=== PATIENT | female | born 1940 | race African-American/Black ===

== ENCOUNTER 2016-09-05 11:48 | Observation (INO) | payer MEDICARE ==
[~2016-09-05] VITALS: Ht 160 cm; Wt 49.9 kg
[~2016-09-05 11:48] MED LIST: ALBU6.7H INH; AMIODARONE PO; ATORVASTATIN PO; AZIT250T6 PO; CLOPIDOGREL PO; HYDR-4134 PO; LOSARTAN PO; MAGN400C PO
[2016-09-05 13:21] LABS: BASOPHILS % 1.3 % (0.0-2.0); EOSINOPHILS % 14.5 % (0.0-5.0); HEMATOCRIT. 32.5 % (36.0-48.0); LYMPHOCYTES % 14.4 % (20.0-50.0); MEAN CORPUSCULAR HEMOGLOBIN 30.2 pg (28.0-32.0); MEAN PLATELET VOLUME 8.8 fl (7.4-10.4); MONOCYTES % 10.4 % (2.0-8.0); NEUTROPHILS % 59.4 % (40.0-76.0); PLATELET 145 x1000/uL (130-400); RED BLOOD CELL COUNT 3.66 mill/uL (4.2-5.4); RED CELL DISTRIBUTION WIDTH 15.7 % (11.6-14.6)
[2016-09-05 13:28] LABS: INR 1.2; PROTHROMBIN TIME 12.7 sec
[2016-09-05 13:30] LABS: CLARITY URINE CLOUDY (CLEAR); COLOR URINE DARK YELLOW (YELLOW); GLUCOSE URINE NEGATIVE (NEGATIVE); KETONES URINE NEGATIVE (NEGATIVE); LEUKOCYTE ESTERASE URINE TRACE (NEGATIVE); NITRITE URINE NEGATIVE (NEGATIVE); OCCULT BLOOD URINE NEGATIVE (NEGATIVE); PROTEIN URINE 1+ (NEGATIVE); SPECIFIC GRAVITY URINE 1.016 (1.005-1.030)
[2016-09-05 13:32] LABS: CARBON DIOXIDE 30 mEq/L (21-32); CHLORIDE 103 mEq/L (98-107); ETHANOL BLOOD < 10 mg/dL
[2016-09-05 13:33] LABS: TROPONIN I 0.07 ng/mL (0.00-0.04)
[2016-09-05 13:59] LABS: *AMPHETAMINES SCREEN URINE NEGATIVE (NEGATIVE); *BARBITURATES SCREEN URINE NEGATIVE (NEGATIVE); *BENZODIAZEPINES SCREEN URINE PRESUMTIVE POSITIVE (NEGATIVE); *COCAINE SCREEN URINE NEGATIVE (NEGATIVE); CANNABINOID URINE SCREEN NEGATIVE (NEGATIVE); METHADONE URINE SCREEN NEGATIVE (NEGATIVE); OPIATES URINE SCREEN NEGATIVE (NEGATIVE); PHENCYCLIDINE URINE SCREEN NEGATIVE (NEGATIVE)
[2016-09-05] MEDS ORDERED: ASPIRIN 325MG TABLET PO ONE (15:00)
[2016-09-05 22:30] VITALS: BP 190/92
[2016-09-05 22:35] VITALS: BP 190/92
[2016-09-05] MEDS ORDERED: HYDRALAZINE HCL 50MG TABLET PO SCH (23:15)
[2016-09-05] MEDS ORDERED: LOSARTAN POTASSIUM 50 MG TABLET PO SCH (23:45)
[2016-09-05] MEDS ORDERED: ASPIRIN 325MG TABLET PO SCH (23:45)
[2016-09-05] MEDS ORDERED: PANTOPRAZOLE 40MG DR TABLET PO SCH (23:45)
[2016-09-05] MEDS ORDERED: FUROSEMIDE 40MG/4ML VIAL IVP SCH (23:45)
[2016-09-05] MEDS ORDERED: MORPHINE SULFATE 2 MG/ML CPJ (NOT FOR IM USE) IV PRN (23:45)
[2016-09-06] VITALS (11 sets, daily range): BP systolic 136–180; BP diastolic 68–99
[2016-09-06] MEDS ORDERED: AMIODARONE HCL 200 MG TABLET PO SCH (00:15)
[2016-09-06] MEDS ORDERED: FUROSEMIDE 40MG/4ML VIAL IVP NR (00:26)
[2016-09-06] MEDS ORDERED: LOSARTAN POTASSIUM 50 MG TABLET PO NR (00:26)
[2016-09-06] MEDS ORDERED: HYDRALAZINE HCL 50MG TABLET PO NR (00:26)
[2016-09-06] MEDS: CLOPIDOGREL 75MG TABLET PO SCH ×2 (00:41→09:58)
[2016-09-06] MEDS: MAGNESIUM OXIDE 400MG TABLET PO SCH ×2 (00:42→09:59)
[2016-09-06 05:57] LABS: CARBON DIOXIDE 28 mEq/L (21-32); CHLORIDE 103 mEq/L (98-107); HDL CHOLESTEROL 57 mg/dL (40-59); LDL CHOLESTEROL 122 mg/dL (5-100); TROPONIN I 0.06 ng/mL (0.00-0.04)
[2016-09-06] MEDS ORDERED: FUROSEMIDE 40MG/4ML VIAL IVP SCH (09:00)
[2016-09-06] MEDS ORDERED: PANTOPRAZOLE 40MG DR TABLET PO SCH (09:00)
[2016-09-06] MEDS ORDERED: POTASSIUM CHLORIDE 10MEQ TABLET SR PO SCH ×2 (09:00)
[2016-09-06] MEDS ORDERED: ASPIRIN 325MG TABLET PO SCH (09:00)
[2016-09-06] MEDS ORDERED: LOSARTAN POTASSIUM 50 MG TABLET PO SCH (09:00)
[2016-09-06] MEDS ORDERED: HYDRALAZINE HCL 50MG TABLET PO SCH (09:00)
[2016-09-06] MEDS ORDERED: ENOXAPARIN 30MG/0.3ML SYR SUBCUT SCH (09:00)
[2016-09-06] MEDS ORDERED: POTASSIUM CHLORIDE 20MEQ TABLET SR PO NR (10:45)
[2016-09-06] MEDS ORDERED: ATORVASTATIN CALCIUM 20MG TABLET PO SCH (21:00)
== END 2016-09-06 20:00 | disposition short-term general hospital (02) ==
LOC: ER 11:58 → EDBEDREQ 13:11 → INTOOBSV 15:42 → 6WST 15:42 → EDBEDREQ 15:43 → ENRESERV 19:29
PROVIDERS: ADMIT Internal Medicine; ATTEND Internal Medicine
DX: I50.22 Chronic systolic (congestive) heart failure (principal); I25.10 Atherosclerotic heart disease of native coronary artery without angina pectoris; I13.0 Hypertensive heart and chronic kidney disease with heart failure and stage 1 through stage 4 chronic kidney disease, or unspecified chronic kidney disease; E11.22 Type 2 diabetes mellitus with diabetic chronic kidney disease; N18.9 Chronic kidney disease, unspecified; E78.5 Hyperlipidemia, unspecified; E66.9 Obesity, unspecified; D64.9 Anemia, unspecified; I25.2 Old myocardial infarction; E87.6 Hypokalemia; I25.5 Ischemic cardiomyopathy; I34.0 Nonrheumatic mitral (valve) insufficiency; R29.810 Facial weakness; Z86.73 Personal history of transient ischemic attack (TIA), and cerebral infarction without residual deficits; Z95.5 Presence of coronary angioplasty implant and graft; Z95.1 Presence of aortocoronary bypass graft; Z95.810 Presence of automatic (implantable) cardiac defibrillator
CPT/HCPCS: 36415; 70450; 71010; 80053; 80061; 80305; 81001; 83735; 84484; 85025; 85610; 93005; 96372; 96374; 96375; 96376; 99285; G0378; G0482; J1650; J1940; J2270

== ENCOUNTER 2016-10-15 12:36 | Emergency (ER) | payer MEDICARE ==
[~2016-10-15] VITALS: Ht 167.6 cm; Wt 68.0 kg
[2016-10-15 14:33] LABS: BASOPHILS % 0.8 % (0.0-2.0); EOSINOPHILS % 2.6 % (0.0-5.0); HEMATOCRIT. 34.9 % (36.0-48.0); HEMOGLOBIN. 11.6 g/dL (12.0-16.0); LYMPHOCYTES % 10.1 % (20.0-50.0); MEAN CORPUSCULAR HEMOGLOBIN 29.5 pg (28.0-32.0); MEAN CORPUSCULAR VOLUME 88.6 fL (81.0-99.0); MEAN PLATELET VOLUME 8.1 fl (7.4-10.4); MONOCYTES % 8.7 % (2.0-8.0); NEUTROPHILS % 77.8 % (40.0-76.0); PLATELET 228 x1000/uL (130-400); RED BLOOD CELL COUNT 3.93 mill/uL (4.2-5.4); RED CELL DISTRIBUTION WIDTH 17.8 % (11.6-14.6)
[2016-10-15 14:48] LABS: INR 1.3; PROTHROMBIN TIME 13.7 sec
[2016-10-15 14:50] LABS: TROPONIN I 0.1 ng/mL (0.00-0.04)
[2016-10-15 21:02] VITALS: BP 170/69
== END 2016-10-15 21:04 | disposition short-term general hospital (02) ==
LOC: ER 14:07
DX: I50.9 Heart failure, unspecified (principal); I13.0 Hypertensive heart and chronic kidney disease with heart failure and stage 1 through stage 4 chronic kidney disease, or unspecified chronic kidney disease; J44.9 Chronic obstructive pulmonary disease, unspecified; I25.10 Atherosclerotic heart disease of native coronary artery without angina pectoris; Z95.0 Presence of cardiac pacemaker; Z88.6 Allergy status to analgesic agent
CPT/HCPCS: 36415; 71010; 80048; 83880; 84484; 85025; 85610; 93005; 99285

== ENCOUNTER 2016-12-03 10:42 | Inpatient (IN) | payer MEDICARE, OTHER ==
[~2016-12-03] VITALS: Ht 167.6 cm; Wt 69.9 kg
[2016-12-03] MEDS ORDERED: DEXTROSE 50% WATER 50ML SYRINGE IV ONE ×2 (11:27→15:00)
[2016-12-03 11:47] LABS: HEMATOCRIT. 34.5 % (36.0-48.0); HEMOGLOBIN. 11.4 g/dL (12.0-16.0); MEAN CORPUSCULAR HEMOGLOBIN 28.9 pg (28.0-32.0); MEAN CORPUSCULAR VOLUME 87.3 fL (81.0-99.0); MEAN PLATELET VOLUME 7.7 fl (7.4-10.4); PLATELET 320 x1000/uL (130-400); RED BLOOD CELL COUNT 3.95 mill/uL (4.2-5.4); RED CELL DISTRIBUTION WIDTH 19.9 % (11.6-14.6)
[2016-12-03 11:52] LABS: CARBON DIOXIDE 20 mEq/L (21-32); CHLORIDE 107 mEq/L (98-107)
[2016-12-03 11:55] LABS: INR 1.3; PARTIAL THROMBOPLASTIN TIME 34.4 sec (23.4-31.0); PROTHROMBIN TIME 13.5 sec (9.4-11.6)
[2016-12-03 12:00] LABS: TROPONIN I 0.42 ng/mL (0.00-0.04)
[2016-12-03 12:14] LABS: PLATELET ESTIMATE NORMAL
[2016-12-03] MEDS ORDERED: FUROSEMIDE 40MG/4ML VIAL IVP ONE (12:15)
[2016-12-03] MEDS ORDERED: ASPIRIN 81MG TABLET PO ONE (12:15)
[2016-12-03] MEDS ORDERED: LEVOFLOXACIN 500MG PREMIX 100 ML IV ONE (12:15)
[2016-12-03] MEDS ORDERED: VANCOMYCIN 1 G PREMIX 200 ML IV SCH ×2 (13:45→23:00)
[2016-12-03 15:08] LABS: CLARITY URINE TURBID (CLEAR); COLOR URINE DARK YELLOW (YELLOW); GLUCOSE URINE NEGATIVE (NEGATIVE); KETONES URINE NEGATIVE (NEGATIVE); LEUKOCYTE ESTERASE URINE 1+ (NEGATIVE); NITRITE URINE POSITIVE (NEGATIVE); OCCULT BLOOD URINE NEGATIVE (NEGATIVE); PROTEIN URINE 1+ (NEGATIVE); SPECIFIC GRAVITY URINE 1.027 (1.005-1.030)
[2016-12-03 17:06] VITALS: BP 110/44
[2016-12-03 17:40] VITALS: BP 110/44
[2016-12-03] MEDS ORDERED: ONDANSETRON HCL 4MG/2ML VIAL IV PRN (19:15)
[2016-12-03] MEDS ORDERED: ENOXAPARIN 40MG/0.4ML SYR SUBCUT SCH (19:15)
[2016-12-03] MEDS ORDERED: IPRATROPIUM/ALBUTEROL 0.5-3(2.5)MG/3ML NEB INH PRN (19:15)
[2016-12-03 19:55] VITALS: BP 105/38
[2016-12-03] MEDS ORDERED: DEXT 5%/0.45% NACL 1000ML 1,000 ML IV SCH (20:00)
[2016-12-03 20:12] LABS: BG BASE EXCESS -4.1 mmol/L (-2.0-2.0); BG CARBOXYHEMOGLOBIN 0.9 % (0.5-1.5); BG DEOXYHEMOGLOBIN 5.4 % (0.0-5.0); BG FRACTION INSPIRED OXYGEN 36; BG HCO3 ACT 18.9 mmol/L (22.0-26.0); BG METHEMOGLOBIN 0.2 % (0.0-1.5); BG OXYGEN SATURATION 94.5 % (92.0-98.5); BG OXYHEMOGLOBIN 93.5 % (94.0-97.0); BG PCO2 28.6 mmHg (35.0-45.0); BG PH 7.438 (7.350-7.450); BG PO2 74.9 mmHg (75.0-100.0); BG SAMPLE SITE RIGHT BRACHIAL; BG TOTAL HEMOGLOBIN 11.8 g/dL (12.0-18.0); BG VENT MODE NASAL CANNULA
[2016-12-04] VITALS: BP 131/56
[2016-12-04 04:00] VITALS: BP 130/57
[2016-12-04 08:00] VITALS: BP 118/49
[2016-12-04 08:04] LABS: TROPONIN I 0.4 ng/mL (0.00-0.04)
[2016-12-04 11:45] LABS: BASOPHILS % 0.2 % (0.0-2.0); EOSINOPHILS % 0.4 % (0.0-5.0); HEMATOCRIT. 32.6 % (36.0-48.0); HEMOGLOBIN. 10.8 g/dL (12.0-16.0); LYMPHOCYTES % 13.5 % (20.0-50.0); MEAN CORPUSCULAR HEMOGLOBIN 28.8 pg (28.0-32.0); MEAN CORPUSCULAR VOLUME 86.7 fL (81.0-99.0); MEAN PLATELET VOLUME 7.7 fl (7.4-10.4); MONOCYTES % 2.8 % (2.0-8.0); NEUTROPHILS % 83.1 % (40.0-76.0); PLATELET 270 x1000/uL (130-400); RED BLOOD CELL COUNT 3.76 mill/uL (4.2-5.4); RED CELL DISTRIBUTION WIDTH 19.6 % (11.6-14.6)
[2016-12-04 12:00] VITALS: BP 137/48
[2016-12-04] MEDS: ENOXAPARIN 30MG/0.3ML SYR SUBCUT SCH (12:23)
[2016-12-04] MEDS: AMLODIPINE 2.5MG TABLET PO SCH ×2 (12:23→20:52)
[2016-12-04] MEDS: ACETAMINOPHEN 325MG TABLET PO PRN ×2 (12:23→18:31)
[2016-12-04] MEDS: LEVOFLOXACIN 250MG PREMIX 50 ML IV SCH (13:21)
[2016-12-04] MEDS ORDERED: LEVOFLOXACIN 250MG PREMIX 50 ML IV SCH (14:45)
[2016-12-04] MEDS ORDERED: SODIUM BICARBONATE 8.4% 1 MEQ/ML 50ML SYR IV NR (14:45)
[2016-12-04] MEDS ORDERED: VANCOMYCIN 750 MG PREMIX 150 ML IV SCH (15:00)
[2016-12-04 16:00] VITALS: BP 120/90
[2016-12-04] MEDS: IPRATROPIUM/ALBUTEROL 0.5-3(2.5)MG/3ML NEB INH SCH ×2 (16:14→21:50)
[2016-12-04] MEDS: FUROSEMIDE 40MG/4ML VIAL IVP SCH (17:16)
[2016-12-04 20:47] VITALS: BP 129/44
[2016-12-05] VITALS (7 sets, daily range): BP systolic 94–126; BP diastolic 40–50
[2016-12-05] MEDS: IPRATROPIUM/ALBUTEROL 0.5-3(2.5)MG/3ML NEB INH SCH ×6 (00:16→19:59)
[2016-12-05 06:23] LABS: HEMATOCRIT. 30.2 % (36.0-48.0); HEMOGLOBIN. 10.1 g/dL (12.0-16.0); MEAN CORPUSCULAR HEMOGLOBIN 29.1 pg (28.0-32.0); MEAN PLATELET VOLUME 7.8 fl (7.4-10.4); PLATELET 225 x1000/uL (130-400); RED BLOOD CELL COUNT 3.47 mill/uL (4.2-5.4); RED CELL DISTRIBUTION WIDTH 19.7 % (11.6-14.6)
[2016-12-05 07:23] LABS: CHLORIDE 107 mEq/L (98-107)
[2016-12-05 07:36] LABS: CARBON DIOXIDE 22 mEq/L (21-32); TROPONIN I 0.39 ng/mL (0.00-0.04)
[2016-12-05] MEDS: AMLODIPINE 2.5MG TABLET PO SCH (09:00)
[2016-12-05] MEDS: FUROSEMIDE 40MG/4ML VIAL IVP SCH ×2 (09:00→18:19)
[2016-12-05] MEDS: ENOXAPARIN 30MG/0.3ML SYR SUBCUT SCH (09:13)
[2016-12-05] MEDS ORDERED: POTASSIUM CHLORIDE 20MEQ TABLET SR PO SCH (12:15)
[2016-12-05] MEDS: LEVOFLOXACIN 250MG PREMIX 50 ML IV SCH (12:46)
[2016-12-05] MEDS ORDERED: VANCOMYCIN 750 MG PREMIX 150 ML IV NR (21:00)
[2016-12-05 21:53] LABS: PLATELET ESTIMATE NORMAL
== END 2016-12-05 20:10 | disposition short-term general hospital (02) | DRG 871 ==
LOC: EDBEDREQ 12:20 → ER 12:26 → 6WST 12:27 → ENRESERV 14:45
PROVIDERS: ADMIT Internal Medicine; ATTEND Internal Medicine
PROC: 02HV33Z Insertion of Infusion Device into Superior Vena Cava, Percutaneous Approach (ICD-10-PCS; principal; 2016-12-04)
PROC: B5181ZA Fluoroscopy of Superior Vena Cava using Low Osmolar Contrast, Guidance (ICD-10-PCS; 2016-12-04)
PROC: B548ZZA Ultrasonography of Superior Vena Cava, Guidance (ICD-10-PCS; 2016-12-04)
DX: A41.9 Sepsis, unspecified organism (principal); G93.40 Encephalopathy, unspecified; I21.4 Non-ST elevation (NSTEMI) myocardial infarction; N17.0 Acute kidney failure with tubular necrosis; I13.0 Hypertensive heart and chronic kidney disease with heart failure and stage 1 through stage 4 chronic kidney disease, or unspecified chronic kidney disease; J18.9 Pneumonia, unspecified organism; I50.22 Chronic systolic (congestive) heart failure; E11.22 Type 2 diabetes mellitus with diabetic chronic kidney disease; I27.2 Other secondary pulmonary hypertension; E04.2 Nontoxic multinodular goiter; E78.5 Hyperlipidemia, unspecified; G89.29 Other chronic pain; I25.10 Atherosclerotic heart disease of native coronary artery without angina pectoris; I25.2 Old myocardial infarction; I25.5 Ischemic cardiomyopathy; E87.6 Hypokalemia; I08.0 Rheumatic disorders of both mitral and aortic valves; J45.909 Unspecified asthma, uncomplicated; N18.9 Chronic kidney disease, unspecified; M54.2 Cervicalgia; E80.6 Other disorders of bilirubin metabolism; R62.7 Adult failure to thrive; Z79.4 Long term (current) use of insulin; Z82.49 Family history of ischemic heart disease and other diseases of the circulatory system; Z83.3 Family history of diabetes mellitus; Z86.73 Personal history of transient ischemic attack (TIA), and cerebral infarction without residual deficits; Z87.01 Personal history of pneumonia (recurrent); Z95.1 Presence of aortocoronary bypass graft; Z95.5 Presence of coronary angioplasty implant and graft; Z95.810 Presence of automatic (implantable) cardiac defibrillator; Z99.3 Dependence on wheelchair; Z88.5 Allergy status to narcotic agent; Z79.899 Other long term (current) drug therapy; Z90.49 Acquired absence of other specified parts of digestive tract
CPT/HCPCS: 36415; 36569; 36600; 70450; 71010; 72125; 76937; 77001; 80048; 80053; 81001; 82375; 82805; 82962; 83605; 83690; 83735; 83880; 84443; 84484; 85025; 85610; 85730; 86850; 86900; 87040; 87086; 93005; 93306; 93971; 94640; 94664; 96365; 96367; 96375; 99285; C1725; C1893; J1650; J1940; J1956; J3370; J3490; J7050; J7620